=== PATIENT | female | born 1980 ===

== ENCOUNTER 2022-11-28 00:34 | Emergency (ER) | payer OTHER ==
[2022-11-28] MEDS ORDERED: MORPHINE 4 MG/ML SYR ONE (00:48)
[2022-11-28] MEDS ORDERED: NA CHLORIDE 0.9% 1,000 ML ONE (00:48)
[2022-11-28] MEDS ORDERED: FAMOTIDINE 20 MG/2 ML VIAL IV ONE (00:48)
[2022-11-28] MEDS ORDERED: ONDANSETRON 4 MG/2 ML VIAL ONE (00:48)
[2022-11-28 01:12] LABS: Hematocrit 41.5 % (36.0-45.0); Lymphocytes % 49.7 % (15.3-44.8); MCV 80.4 fL (80-100); MPV 8.1 fL (7.6-11.3); RBC Red Blood Cell Count 5.16 M/uL (3.86-4.86)
[2022-11-28 01:21] LABS: Albumin 3.9 g/dL (3.4-5.0); Bilirubin Total 0.4 mg/dL (0.2-1.0); Potassium 3.3 mmol/L (3.5-5.1); Protein, Total 7.7 g/dL (6.4-8.2)
[2022-11-28 01:29] LABS: Urine Blood Trace-intact (Negative); Urine Glucose Negative (Negative); Urine Protein Negative (Negative); Urine Specific Gravity 1.025 (1.005-1.030); Urine pH 5.5 (5.0-7.0)
[2022-11-28 01:41] LABS: Urine Specific Gravity/Preg 1.025 (1.005-1.030)
[2022-11-28 02:01] LABS: Urine Bacteria None Seen /HPF (<20); Urine Mucus Slight /HPF (None Seen); Urine RBC None Seen /HPF (None Seen)
--- NOTE | 2022-11-28 03:28 | ER ---
Nurse's Notes [facility] Name: Clarissa Cowan Age: 42 yrs Sex: Female : 1980 Arrival Date: 11/28/2022 Time: 00:38 Bed 6 Private MD: Diagnosis: Other and unspecified ovarian cysts;Lower abdominal pain, unspecified Presentation: 11/28 00:50 Chief complaint: Patient states: "It all started about an hour ago. My and I tw5 were having intercourse, but then afterwards I started getting this really bad abdominal cramping. The pain only got worse and then I felt like I needed to throw up. Now here I am." Patient was wheeled in from the parking lot and threw up on the way to the room. Coronavirus screen: Vaccine status: Patient reports being unvaccinated. Ebola Screen: Patient negative for fever greater than or equal to 101.5 degrees Fahrenheit, and additional compatible Ebola Virus Disease symptoms Patient denies exposure to infectious person. Patient denies travel to an Ebola-affected area in the 21 days before illness onset. Initial Sepsis Screen: Does the patient meet any 2 criteria? HR > 90 bpm. Does the patient have a suspected source of infection? Yes: Acute abdominal pain. Risk Assessment: Do you want to hurt yourself or someone else? Patient reports no desire to harm self or others. Onset of symptoms was November 28, 2022 at 00:00. 00:50 Method Of Arrival: Wheelchair tw5 00:50 Acuity: AYAN 3 tw5 Triage Assessment: 00:50 General: Appears uncomfortable, Behavior is appropriate for age. Pain: Complains of tw5 pain in abdomen Pain currently is 8 out of 10 on a pain scale. GI: Pt is actively vomiting undigested food. 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 - Social history:: Smoking status: Patient/guardian denies using tobacco, Stopped _ months ago 6. Screenin:54 [facility] ED Fall Risk Assessment (Adult) History of falling in the last 3 months, tw5 including since admission. Abuse screen: Denies threats or abuse. Denies injuries from another. Nutritional screening: No deficits noted. Tuberculosis screening: No symptoms or risk factors identified. Assessment: 00:54 General: Appears in no apparent distress. Behavior is calm, cooperative, appropriate tw5 for age. Pain: Pain currently is 5 out of 10 on a pain scale. Respiratory: Airway is patent Trachea midline Respiratory effort is even, unlabored. 00:55 General: Reports "My stomach still feels really tight and bloated.". tw5 03:48 Reassessment: Patient states feeling better. Patient states symptoms have improved. tw5 Vital Signs: 00:50 BP 125 / 95; Pulse 96; Resp 18; Temp 98.2; Pulse Ox 98% ; Weight 87.54 kg; Height 5 ft. tw5 6 in. (167.64 cm); Pain 8/10; 00:50 Body Mass Index 31.15 (87.54 kg, 167.64 cm) tw5 ED Course: 00:38 Patient arrived in ED. as6 00:40 Dale Blackburn PA is PHCP. cp 00:40 Ranjan Maynard MD is Attending Physician. cp 00:44 Gosia Hampton RN is Primary Nurse. kd3 00:44 Inserted saline lock: 20 gauge in right antecubital area, using aseptic technique. kd3 Blood collected. 00:48 CBC with Diff Sent. kd3 00:48 CMP Sent. kd3 00:48 Lipase Sent. kd3 00:50 CT Abd/Pelvis - IV Contrast Only Sent. tw5 00:50 Arm band placed on. tw5 00:53 Triage completed. tw5 00:54 Patient has correct armband on for positive identification. Placed in gown. Bed in low tw5 position. Call light in reach. 00:55 Pulse ox on. NIBP on. Door closed. Visitors limited. Moved to private room. Warm tw5 blanket given. Verbal reassurance given. 02:17 Urine Microscopic Only Sent. tw5 02:17 Urine --Ancillary (enter results) Sent. tw5 03:27 Samira Irene MD is Referral Physician. rn 03:48 No provider procedures requiring assistance completed. IV discontinued, intact, tw5 bleeding controlled, No redness/swelling at site. Pressure dressing applied. Administered Medications: 00:46 Drug: NS 0.9% 1000 ml Route: IV; Rate: 1 bolus; Site: left antecubital; tw5 00:50 Drug: Pepcid (famotidine) 20 mg Route: IVP; Site: right antecubital; 00:50 Drug: Zofran (Ondansetron) 4 mg Route: IVP; Site: right antecubital; 00:50 Drug: morphine 4 mg Route: IVP; Infused Over: 4 mins; Site: right antecubital; Medication: 00:54 VIS not applicable for this client. Outcome: 03:28 Discharge ordered by . rn 03:49 Discharged to home ambulatory. 03:49 Condition: improved 03:49 Discharge instructions given to patient, Instructed on discharge instructions, follow up and referral plans. medication usage, Demonstrated understanding of instructions, follow-up care, medications, Prescriptions given X 1. 03:49 Patient left the ED. Signatures: Ranjan Maynard MD MD rn Dale Blackburn PA PA cp Wood, Tiffany Kyle Hobbs RN RN as6 Gosia Hampton RN RN kd3 Corrections: (The following items were deleted from the chart) 00:54 00:50 LMP 0 tw
--- NOTE | 2022-11-28 03:28 | EDPHYS ---
Physician Documentation [facility] Name: Clarissa Cowan Age: 42 yrs Sex: Female : 1980 Arrival Date: 11/28/2022 Time: 00:38 Bed 6 Private MD: ED Physician Ranjan Maynard HPI: 11/28 00:45 This 42 yrs old Female presents to ER via Wheelchair with complaints of Abdominal Pain. cp 00:45 The patient presents with abdominal pain that is diffuse. Onset: The symptoms/episode cp began/occurred suddenly, while having intercourse with . The symptoms radiate to Associated signs and symptoms: Pertinent positives: nausea and vomiting, Pertinent negatives: chest pain, constipation, diarrhea, fever, vomiting blood, vaginal bleeding. The symptoms are described as constant. Severity of pain: in the emergency department the pain is unchanged despite home interventions. 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 - Social history:: Smoking status: Patient/guardian denies using tobacco, Stopped _ months ago 6. ROS: 00:50 Constitutional: Positive for poor PO intake, Negative for body aches, chills, fever. cp 00:50 Eyes: Negative for injury, pain, redness, and discharge. cp 00:50 ENT: Negative for drainage from ear(s), ear pain, sore throat, difficulty swallowing, difficulty handling secretions. 00:50 Cardiovascular: Negative for chest pain. 00:50 Respiratory: Negative for cough, shortness of breath, wheezing. 00:50 Abdomen/GI: Positive for abdominal pain, nausea and vomiting, Negative for diarrhea, constipation, hematemesis, black/tarry stool, rectal bleeding. 00:50 : Negative for urinary symptoms, vaginal bleeding, vaginal discharge. 00:50 Neuro: Negative for altered mental status, dizziness, headache, numbness, syncope, weakness. 00:50 All other systems are negative. Exam: 00:55 Constitutional: The patient appears in no acute distress, alert, awake, non-toxic, well cp developed, well nourished, uncomfortable. 00:55 Head/Face: Normocephalic, atraumatic. cp 00:55 Eyes: Periorbital structures: appear normal, Conjunctiva: normal, no exudate, no injection, Sclera: no appreciated abnormality, Lids and lashes: appear normal, bilaterally. 00:55 ENT: External ear(s): are unremarkable, Nose: is normal, Mouth: Lips: moist, Oral mucosa: pink and intact, moist, Posterior pharynx: is normal, airway is patent, no erythema, no exudate. 00:55 Neck: ROM/movement: is normal, is supple, without pain, no range of motions limitations. 00:55 Chest/axilla: Inspection: normal. 00:55 Cardiovascular: Rate: normal, Rhythm: regular. 00:55 Respiratory: the patient does not display signs of respiratory distress, Respirations: normal, no use of accessory muscles, no retractions, labored breathing, is not present, Breath sounds: are clear throughout, no decreased breath sounds, no stridor, no wheezing. 00:55 Abdomen/GI: Inspection: abdomen appears normal, Bowel sounds: active, all quadrants, Palpation: soft, in all quadrants, moderate abdominal tenderness, in the right lower quadrant, severe abdominal tenderness, in the left lower quadrant, voluntary guarding, is elicited in the right lower quadrant and left lower quadrant. 00:55 Back: pain, of the low back, ROM is normal. Vital Signs: 00:50 BP 125 / 95; Pulse 96; Resp 18; Temp 98.2; Pulse Ox 98% ; Weight 87.54 kg; Height 5 ft. tw5 6 in. (167.64 cm); Pain 8/10; 00:50 Body Mass Index 31.15 (87.54 kg, 167.64 cm) tw5 MDM: 00:40 Patient medically screened. cp 03:26 Differential diagnosis: appendicitis, bowel obstruction, diverticulitis, Dysmenorrhea, rn Endometriosis, non-specific abd pain, Peritonitis, Ureterolithiasis, urinary tract infection, ovarian cyst. Data reviewed: vital signs, nurses notes, lab test result(s), radiologic studies, CT scan, and as a result, I will discharge patient. Independent interpretation of the following test(s) in the Emergency Department CT Scan: My interpretation is CT abdomen images show approx 4cm left ovarian cyst, no free air on my interpretation. Counseling: I had a detailed discussion with the patient and/or guardian regarding: the historical points, exam findings, and any diagnostic results supporting the discharge/admit diagnosis, lab results, radiology results, the need for outpatient follow up, to return to the emergency department if symptoms worsen or persist or if there are any questions or concerns that arise at home. Response to treatment: the patient's symptoms have markedly improved after treatment, and as a result, I will discharge patient. Special discussion: Based on the patient's Hx, exam, and Dx evaluation, there is no indication for emergent surgery or inpatient Tx. It is understood by the patient/guardian that if the Sx's persist or worsen they need to return immediately for re-evaluation. I discussed with the patient/guardian in detail that at this point there is no indication for admission to the hospital. It is understood, however, that if the symptoms persist or worsen the patient needs to return immediately for re-evaluation. Based on the history and exam findings, there is no indication for further emergent testing or inpatient evaluation. I discussed with the patient/guardian the need to see the OB Gyne specialist for further evaluation of the symptoms. 11/28 00:41 Order name: CBC with Diff cp 11/28 00:41 Order name: CMP cp 11/28 00:41 Order name: Lipase cp 11/28 00:41 Order name: Urine Microscopic Only cp 11/28 01:15 Order name: CBC with Automated Diff; Complete Time: 01:17 EDMS 11/28 01:17 Interpretation: Normal except: WBC 12.00; RBC 5.16; MCH 26.6; KAITLYNN% 40.9; LYM% 49.7; cp LYMA 6.0. 11/28 01:21 Order name: Comprehensive Metabolic Panel; Complete Time: 01:28 EDMS 11/28 00:41 Order name: CT Abd/Pelvis - IV Contrast Only cp 11/28 01:21 Order name: Lipase; Complete Time: 01:28 EDMS 11/28 01:29 Order name: Urine Dipstick-Ancillary; Complete Time: :47 EDMS 11/28 01:47 Interpretation: Normal except: UKET 4+; UBLD Trace-intact. cp 11/28 01:29 Order name: Urine --Ancillary (enter results) ds4 11/28 01:40 Order name: Urine --Ancillary; Complete Time: 01:47 EDMS 11/28 02:01 Order name: Urine Microscopic Only; Complete Time: 02:28 EDMS 11/28 02:04 Order name: US Pelvis Complete cp 11/28 00:41 Order name: IV Saline Lock; Complete Time: 00:44 cp 11/28 00:41 Order name: Labs collected and sent; Complete Time: 00:44 cp 11/28 00:41 Order name: Urine Dipstick-Ancillary (obtain specimen); Complete Time: 01:29 cp 11/28 00:41 Order name: Urine Test (obtain specimen); Complete Time: 01:29 cp Administered Medications: 00:46 Drug: NS 0.9% 1000 ml Route: IV; Rate: 1 bolus; Site: left antecubital; tw5 00:50 Drug: Pepcid (famotidine) 20 mg Route: IVP; Site: right antecubital; tw5 00:50 Drug: Zofran (Ondansetron) 4 mg Route: IVP; Site: right antecubital; tw5 00:50 Drug: morphine 4 mg Route: IVP; Infused Over: 4 mins; Site: right antecubital; tw5 Disposition: 03:28 Co-signature as Attending Physician, Ranjan Maynard MD I agree with the assessment and rn plan of care. I reviewed the patient's care provided by Advanced Practice Provider \T\ agree w/ the diagnosis \T\ care plan. I personally saw the pt \T\ performed a substantive portion of the visit, incldng all aspects of the (History/Exam/Medical Decision Making). Disposition Summary: 11/28/22 03:28 Discharge Ordered Location: Home rn Problem: new rn Symptoms: have improved rn Condition: Stable rn Diagnosis - Other and unspecified ovarian cysts rn - Lower abdominal pain, unspecified rn Followup: rn - With: Samira Irene MD - When: As needed - Reason: Recheck today's complaints, Re-evaluation by your physician Discharge Instructions: - Discharge Summary Sheet rn - Abdominal Pain, Adult rn - Ovarian Cyst rn Forms: - Medication Reconciliation Form rn - Thank You Letter rn - Antibiotic home hospice rn - Prescription Opioid Use rn Prescriptions: - Diclofenac Sodium 75 mg Oral tablet,delayed release (DR/EC) - take 1 tablet by ORAL route 2 times per day; 20 tablet; Refills: 0, Product rn Selection Permitted Signatures: Dispatcher [employer] [facility] Maynard, Ranjan, Dale Richard MD, rn, PA PA cp Wood, Tiffany tw5
[2022-11-28 04:20] VITALS: BP 125/95; TEMP 98.2; O2SAT 98
--- NOTE | 2022-11-28 13:43 | RAD REPORT ---
EXAM DESCRIPTION: US - Pelvis Complete - 11/28/2022 2:34 am CLINICAL HISTORY: Lower abdomen pain TECHNIQUE: Real-time complete transabdominal pelvic ultrasound with image documentation. COMPARISON: US Pelvis Transabdominal dated 04/24/2021 FINDINGS: Uterus/cervix: The uterus is anteverted and measures 9 x 4.1 x 4.9 cm. The endometrial stripe measures 6 mm in thickness. No myometrial mass. Right ovary: The right ovary is not visualized. Left ovary: The left ovary measures 5.5 x 3.4 x 4.6 cm. There is a 4 x 3.1 x 3 cm anechoic/simple cyst. Normal blood flow. Free fluid: No free fluid. Bladder: Unremarkable as visualized. Wall is normal thickness for degree of distention. IMPRESSION: 4 cm left ovarian cyst. No follow-up imaging is recommended. Note: This recommendati on does not apply to premenarchal patients and to those with increased risk (genetic, family history, elevated tumor markers or other high-risk factors) of ovarian cancer. Reference: Radiology. 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 The interpreting radiologist is fully responsible for the content of the report.
--- NOTE | 2022-11-28 13:52 | RAD REPORT ---
EXAM DESCRIPTION: CT - Abdomen Pelvis W Contrast - 11/28/2022 5:26 am CLINICAL HISTORY: Abdominal cramping, nausea, vomiting TECHNIQUE: Axial computed tomography images of the abdomen and pelvis with intravenous contrast. S agittal and coronal reformatted images were created and reviewed. This CT exam was performed using one or more of the following dose reduction techniques: automated exposure control, adjustment of t he mA and/or kV according to patient size, and/or use of iterative reconstruction technique. COMPARISON: No relevant prior studies available. FINDINGS: Lung bases: Left basilar subsegmental atelectasis/pleural parenchymal scar. Mediastinum: Small hiatal hernia. ABDOMEN: Liver: Unremarkable. No mass. Gallbladder and bile ducts: Unremarkable. No calcified stones. No ductal dilation. Pancreas: Unremarkable. No mass. No ductal dilation. Spleen: Unremarkable. No splenomegaly. Adrenals: Unremarkable. No mass. Kidneys and ureters: Unremarkable. No solid mass. No hydronephrosis. Stomach and bowel: Moderate stool proximal to mid large bowel. No obstruction. No mucosal thick ening. PELVIS: Appendix: Normal caliber appendix. No findings to suggest acute appendicitis. Bladder: Mild circumferential urinary bladder wall thickening. No mass. Reproductive: 4 cm left ovarian cyst. The uterus and right ovary are unremarkable as visualized. ABDOMEN and PELVIS: Intraperitoneal space: Unremarkable. No free air. No significant fluid collection. Bones/joints: Mild multilevel spondylosis. No acute fracture. No dislocation. Soft tissues: Small fat-containing umbilical hernia. Vasculature: Unremarkable. No abdominal aortic aneurysm. Lymph nodes: Unremarkable. No enlarged lymph nodes. IMPRESSION: 1. No evidence for bowel obstruction. No appreciable mucosal thickening. 2. Mild circumferential urinary bladder wall thickening. Please correlate clinically for cystitis . 3. 4 cm left ovarian cyst. No follow-up imaging recommended. Note: This recommendation excludes cysts stable \[id number]\ 2 years, cysts previously characterized by US or MR, corpus luteum cysts and ad nexal calcifications without associated soft tissue mass. This recommendation does not apply to pre menarchal patients and to those with increased risk (genetic, family history, elevated tumor markers or other high-risk factors) of ovarian cancer. Reference: JACR 2019; 17(2):248-254 4. Other findings as above. Electronically signed by: Anam Suazo MD 11/28/2022 2:16 AM ENGINEERING TECH Due to temporary technical issues with the PACS/Fluency reporting system, reports are being signed by the in house radiologists without review as a courtesy to insure prompt reporting. The interpreting radiologist is fully responsible for the content of the report.
== END 2022-11-28 03:49 | disposition home or self-care (01) ==
LOC: ER 00:34
DX: N83.299 Other ovarian cyst, unspecified side (principal); R11.2 Nausea with vomiting, unspecified
CPT/HCPCS: 85025; 36415; 81025; 83690; 80053; 74177; 76856; 96375; 96374; 99284; Q9967; J7030; J2405; 81003; 81015

== ENCOUNTER 2022-12-18 20:45 | Emergency (ER) | payer OTHER ==
--- NOTE | 2022-12-18 21:37 | RAD REPORT ---
EXAM DESCRIPTION: CT - [id number] - 12/18/2022 9:30 pm CLINICAL HISTORY: Trauma, head and neck injury. fall COMPARISON: No comparisons TECHNIQUE: Axial 5 mm thick images of the head were obtained. Axial 2 mm thick images of the cervical spine were obtained with sagittal and coronal reconstruction images generated and reviewed. All CT scans are performed using dose optimization technique as appropriate and may include automated exposure control or mA/KV adjustment according to patient size. FINDINGS: CT HEAD WITHOUT CONTRAST: No acute hemorrhage, hydrocephalus or extra-axial collection is identified.No areas of brain edema or midline shift. The paranasal sinuses and mastoids are clear.The calvarium is intact. CT CERVICAL SPINE WITHOUT CONTRAST: No fracture or subluxation.No prevertebral soft tissues swelling is identified. IMPRESSION: No acute intracranial or cervical spine findings.
[2022-12-18] MEDS ORDERED: LIDOCAINE 1% 20 ML MDV ONE (21:57)
[2022-12-18] MEDS ORDERED: LIDOCAINE 1% W/EPI 1:100,000 50 ML MDV ONE (22:03)
--- NOTE | 2022-12-18 23:32 | ER ---
Nurse's Notes [facility] Name: Clarissa Cowan Age: 42 yrs Sex: Female : 1980 Arrival Date: 12/18/2022 Time: 20:48 Bed 14 Private MD: Diagnosis: Concussion without loss of consciousness;Laceration without foreign body of unspecified part of head Presentation: 12/18 20:53 Chief complaint: Patient states: "I was walking something out to the trash and tripped mb9 over the hose and hit my head on the concrete ground. I see fuzzy things floating in the air and my head and neck hurts. I took Ibuprofen and Tylenol before I came here.". Coronavirus screen: Vaccine status: Patient reports being unvaccinated. Ebola Screen: No symptoms or risks identified at this time. Complicating Factors: There are no complicating factors for this patient. Initial Sepsis Screen: Does the patient meet any 2 criteria? No. Patient's initial sepsis screen is negative. Does the patient have a suspected source of infection? No. Patient's initial sepsis screen is negative. Risk Assessment: Do you want to hurt yourself or someone else? Patient reports no desire to harm self or others. Onset of symptoms was December 18, 2022. 20:53 Method Of Arrival: Ambulatory 9 20:53 Acuity: AYAN 3 mb9 Triage Assessment: 20:57 General: Appears in no apparent distress. Behavior is calm, cooperative. Pain: mb9 Complains of pain in head and neck Pain currently is 6 out of 10 on a pain scale. Quality of pain is described as throbbing, Pain began suddenly, Is continuous. EENT:. Neuro: Level of Consciousness is awake, alert, obeys commands, Oriented to person, place, time, situation, Appropriate for age. Derm: laceration noted to right forehead. 2.5-7.5 cm in length. No active bleeding noted. Musculoskeletal: Range of motion: intact in all extremities. 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 - Social history:: Smoking status: Patient denies any tobacco usage or history of. Screenin:12 [facility] ED Fall Risk Assessment (Adult) History of falling in the last 3 months, vc1 including since admission Yes- single mechanical fall (1 pt) Confusion or Disorientation No (0 pts) Intoxicated or Sedated No (0 pts) Impaired Gait No (0 pts) Mobility Assist Device Used No (0 pt) Altered Elimination No (0 pt) Score/Fall Risk Level 0 - 2 = Low Risk Oriented to surroundings, Maintained a safe environment, Educated pt \\T\\ family on fall prevention, incl call for assistance when getting out of bed. Abuse screen: Denies threats or abuse. Nutritional screening: No deficits noted. Tuberculosis screening: No symptoms or risk factors identified. Assessment: 21:02 Reassessment: C-Collar placed on pt in triage room. mb9 22:13 Reassessment: No changes from previously documented assessment. Patient and/or family vc1 updated on plan of care and expected duration. Pain level reassessed. Patient is alert, oriented x 3, equal unlabored respirations, skin warm/dry/pink. Vital Signs: 20:53 BP 132 / 111; Pulse 106; Resp 18; Temp 98.2; Pulse Ox 98% ; Weight 85.73 kg; Height 5 mb9 ft. 6 in. ; Pain 6/10; 22:17 BP 132 / 99; Pulse 99; Resp 18; Pulse Ox 99% on R/A; vc1 20:53 Body Mass Index 30.51 (85.73 kg, 167.64 cm) mb9 20:53 Pain Scale: Adult mb9 ED Course: 20:48 Patient arrived in ED. ag3 20:51 Dale Blackburn PA is PHCP. cp 20:51 Guillaume Colin MD is Attending Physician. cp 20:56 Triage completed. mb9 20:57 Arm band placed on. mb9 21:31 CT Head C Spine In Process Unspecified. EDMS 21:47 Ayah Curtis, RENETTA is Primary Nurse. vc1 Administered Medications: 22:40 Drug: Lidocaine-Epinephrine Infiltration -1%: (1:100,000) 10 ml Volume: 20 ml; Route: vc1 Infiltration; Medication: 21:03 VIS not applicable for this client. mb9 Outcome: 23:31 Discharge ordered by . kevin Signatures: Dispatcher [employer] Dale Bolden PA PA cp Gomez, Alice 3 Ayah Curtis RN RN vc1 Kate Gray RN RN mb9
--- NOTE | 2022-12-18 23:32 | EDPHYS ---
Physician Documentation [facility] Name: Clarissa Cowan Age: 42 yrs Sex: Female : 1980 Arrival Date: 12/18/2022 Time: 20:48 Bed 14 Private MD: ED Physician Guillaume Colin REPAIRER SASH AND DOOR: 12/18 21:02 LMP 12/18/2022 mb9 Historical: - Allergies: 20:56 No Known Allergies; mb9 - Home Meds: 20:56 None [Active]; mb9 - PMHx: 20:56 None; mb9 - PSHx: 20:56 section; mb9 - Immunization history:: Adult Immunizations up to date. - Social history:: Smoking status: Patient denies any tobacco usage or history of. Vital Signs: 20:53 BP 132 / 111; Pulse 106; Resp 18; Temp 98.2; Pulse Ox 98% ; Weight 85.73 kg; Height 5 mb9 ft. 6 in. ; Pain 6/10; 22:17 BP 132 / 99; Pulse 99; Resp 18; Pulse Ox 99% on R/A; vc1 20:53 Body Mass Index 30.51 (85.73 kg, 167.64 cm) mb9 20:53 Pain Scale: Adult mb9 MDM: 21:03 Patient medically screened. cp 12/18 21:08 Order name: CT Head C Spine; Complete Time: 21:43 cp 12/18 21:43 Interpretation: Reviewed report. cp 12/18 21:08 Order name: Dressing - Wound; Complete Time: 22:01 cp 12/18 21:08 Order name: Gloves, Sterile; Complete Time: 22:40 cp 12/18 21:08 Order name: Setup Suture Tray; Complete Time: 22:01 cp 12/18 21:43 Order name: Wound Care: please clean and irrigate wound; Complete Time: 22:00 cp 12/18 23:11 Order name: Wound dressing; Complete Time: 23:19 cp Administered Medications: 22:40 Drug: Lidocaine-Epinephrine Infiltration -1%: (1:100,000) 10 ml Volume: 20 ml; Route: vc1 Infiltration; Disposition Summary: 12/18/22 23:31 Discharge Ordered Location: Home cp Problem: new cp Symptoms: have improved cp Condition: Stable cp Diagnosis - Concussion without loss of consciousness cp - Laceration without foreign body of unspecified part of head cp Followup: cp - With: Private Physician - When: 1 week - Reason: Staple/Suture removal Forms: - Medication Reconciliation Form cp - Thank You Letter cp - Antibiotic Education cp - Prescription Opioid Use cp Signatures: Dispatcher [employer] EDMS Dale Blackburn PA PA cp Calcote, Vanessa RN RN vc1 Kate Gray RN RN mb9
[2022-12-19 08:56] VITALS: TEMP 98.2
[2022-12-19 08:58] VITALS: BP 132/99; O2SAT 99
== END 2022-12-18 23:42 | disposition home or self-care (01) ==
LOC: ER 20:45
PROC: 0HQ1XZZ Repair Face Skin, External Approach (ICD-10-PCS; principal; 2022-12-18)
DX: S06.0X0A Concussion without loss of consciousness, initial encounter (principal); S01.81XA Laceration without foreign body of other part of head, initial encounter
CPT/HCPCS: 70450; 72125; 12011; J2001